=== PATIENT | male | born 1945 | race Caucasian/White ===

== ENCOUNTER 2019-09-30 08:22 | Day surgery (SDC) | payer OTHER, MEDICARE ==
[2019-09-24 15:11] VITALS: BMI 25.5
[2019-09-30 08:42] VITALS: TEMP 98.4
[2019-09-30 10:46] VITALS: BP 93/74; PULSE 76
--- NOTE | 2019-10-02 14:15 | PATH ---
Surgical Pathology Report Patient Name: MERCEDES PAGAN [facility]. Rec. #: [id number] /Age/Gender: 1945 (Age: 74) / M Account: [id number] Location: [facility] Taken: 09/30/2019 Received: 09/30/2019 Reported: 10/02/2019 Physicians: Louis Dunn M.D. Specimen(s) Received BX POLYP DISTAL TRANSVERSE Clinical History History of diverticulitis, ostomy reversal Final Diagnosis DISTAL TRANSVERSE COLON, POLYP, BIOPSY: TUBULAR ADENOMA. Electronically Signed By Norma Vera M.D. DOCTOR BIENVENIDO Diaz Gross Description Received in formalin, labeled "biopsy polyp distal transverse colon" is a go, irregular portion of soft tissue measuring 0.4 cm. in greatest dimension. The specimen is submitted in toto in one cassette. 10/01/201910/01/2019
== END 2019-09-30 10:45 | disposition home or self-care (01) ==
LOC: FASU-ENDO 08:22
PROVIDERS: ATTEND Internal Medicine Gastroenterology
PROC: 0DJD8ZZ Inspection of Lower Intestinal Tract, Via Natural or Artificial Opening Endoscopic (ICD-10-PCS; 2019-09-30)
PROC: 0DBK8ZX Excision of Ascending Colon, Via Natural or Artificial Opening Endoscopic, Diagnostic (ICD-10-PCS; principal; 2019-09-30 09:54)
DX: Z09 Encounter for follow-up examination after completed treatment for conditions other than malignant neoplasm (principal); D12.3 Benign neoplasm of transverse colon; Z86.010 Personal history of colon polyps; K57.30 Diverticulosis of large intestine without perforation or abscess without bleeding
CPT/HCPCS: 44394; G0105; 88305-TC